=== PATIENT | female | born 1945 | race Caucasian/White ===

== ENCOUNTER → 2022-05-21 | Outpatient (CLI) | payer MEDICARE ==
--- NOTE | 2022-05-26 09:00 | US ---
EXAMINATION TYPE: US arterial LE single level DATE OF EXAM: 05/21/2022 3:04 PM CLINICAL HISTORY: I73.9 PERIPHERAL VASCULAR DISEASE. Tingling and numbness in left calf/foot when wal danial. Patient is diabetic, has hyperlipidemia, and was a previous smoker. Patient states a doctor chinmay d her she had a heart attack, but she is unsure if she did. History of hypertension, diabetes, and hy perlipidemia. Doppler Waveforms: Right: Multiphasic Left: Multiphasic Ankle-Brachial Indices: Right: 1.27 Left: 1.29 Toe Brachial Indices: Right: 0.73 Left: 0.63 IMPRESSION: Normal study
== END | disposition home or self-care (01) ==
LOC: RADUSWWP 13:54
PROVIDERS: ATTEND Family Medicine
DX: I73.9 Peripheral vascular disease, unspecified (principal)
CPT/HCPCS: 93922